=== PATIENT | male | born 1980 | race Caucasian/White ===

== ENCOUNTER 2024-03-28 20:31 | Inpatient (IN) | payer OTHER, SELFPAY ==
[2024-03-28 14:44] VITALS: BP 149/91
[2024-03-28 15:08] LABS: % Basophils 0.3 % (0-2); % Eosinophils 0.1 % (0-6); % Immature Granulocytes 0.5 % (0-0.5); % Lymphocytes 5.1 % (20.5-51.1); % Monocytes 5.7 % (1.7-9.3); % Neutrophils 88.3 % (42.2-75.2); Absolute Basophils 0.1 10^3/uL (0-0.2); Absolute Immature Granulocytes 0.1 10^3/uL (0-0.05); Absolute Monocytes 1.1 10^3/uL (0.1-0.6); Absolute Neutrophils 16.5 10^3/uL (1.4-6.5); Hematocrit 39.6 % (39.0-52.0); Mean Corp Hgb Conc. 35.4 g/dL (33.0-37.0); Mean Corpuscular Hgb 28.3 pg (27.0-31.0); Mean Corpuscular Volume 80.2 fL (80.0-94.0); Mean Platelet Volume 9.1 fL (7.4-10.4); Nucleated Red Blood Cells % 0 % (-); Platelet Count 166 10^3/uL (130-400); Red Blood Cell Count 4.94 10^6/uL (4.70-6.10); Red Cell Dist. Width 13.4 % (11.5-14.5); White Blood Cell Count 18.7 10^3/uL (4.8-10.8)
[2024-03-28 15:25] LABS: Lactic Acid 2.1 mmol/L (0.7-2.0)
[2024-03-28 15:27] LABS: ALT (SGPT) 52 U/L (0-50); AST (SGOT) 39 U/L (17-59); Albumin 4.3 g/dl (3.5-5.0); Alkaline Phosphatase 75 U/L (38-126); Blood Urea Nitrogen 29 mg/dl (9-20); Calcium 9.1 mg/dl (8.4-10.2); Carbon Dioxide 26 mmol/L (22-30); Chloride 97 mmol/L (98-107); Glucose 153 mg/dl (70-99); Potassium 3.9 mmol/L (3.5-5.1); Sodium 134 mmol/L (135-145); Total Bilirubin 1.1 mg/dl (0.2-1.3); Total Protein 7.3 g/dl (6.3-8.2); eGFR > 60.00
--- NOTE | 2024-03-28 15:46 | ED.GENMED ---
History of Present Illness
General
Chief Complaint: Skin Problem
Source: patient
Exam Limitations: none
Time Seen by Provider: 03/28/24 15:34
Travel History
Have you had any contact with someone who has COVID-19?: No
Do you have any symptoms of coronavirus? Fever > 100 degrees, chills, cough, shortness of breath, sore throat, loss of taste or smell, muscle aches, or headache?: No
History of Present Illness
History of Present Illness:
Patient started yesterday with redness to his right leg along with fever and chills. Has taken Motrin and Tylenol at 1 PM. Sent by his primary physician for cellulitis versus DVT. No chest pain or shortness of breath. No severe deep pain of the
calf.
Past History
Past History
ED Past Medical History: None
ED Past Surgical History: Appendectomy
Social History
Tobacco: Non-smoker
Alcohol: Occasional
Drug: None
Personal:
Living: with family
Employment: Employed
Review of Systems
Review of Systems
All Other Systems: Not applicable
Constitutional: Reports fever and chills
Respiratory: Reports no symptoms
Cardiac: Reports no symptoms
Phy Exam
Physical Exam
Physical Exam:
GENERAL: Alert and oriented in no apparent distress
EYE: Orbits normal.
CARDIAC: Regular rate and rhythm without any obvious murmurs.
LUNGS: Clear breath sounds,normal
ABDOMEN: Soft, without focal tenderness or distention
NEUROLOGICAL: Alert and oriented , grossly non-focal
SKIN: Warm and dry, small scab to the right mid calf. Erythema mild swelling warmth and mild tenderness diffusely from the proximal calf down towards the ankle. No abscess no drainage
MUSCULOSKELETAL: Mild swelling of the right lower extremity. Good distal pulses and color
PSYCH: Normal and appropriate interaction.
Course
Orders/Labs/Results
Orders:
Orders
03/28/24 14:56
CMP [Comprehensive Metabolic Panel] Urgent
Complete Blood Count/With Diff Urgent
03/28/24 14:57
Lactic Acid Q4H
Comment: ON ICE, CANCEL 2ND ORDER IF FIRST LACTIC ACID LEVEL <2
Blood Culture Q30M
MARIA ELENA Source: Blood/Venous
Specimen Description:
Comment: FROM 2 SEPARATE SITES
03/28/24 15:41
US Periph Venous LOWER Ext RT Urgent
Comment:
Reason For Exam: Swelling redness
03/28/24 15:42
IV Insert/Care/Rem.- Treatment PRN
0.9% Sodium Chloride 1000 ml [Nss] 1,000 ml IV BOLUS
03/28/24 15:56
Blood Culture Q30M
MARIA ELENA Source: Blood/Venous
Specimen Description:
Comment: FROM 2 SEPARATE SITES
03/28/24 16:00
Vancomycin [Vancocin] 2,000 mg 0.9% Sodium Chloride 500 ml [Nss] 500 ml IV NOW
03/28/24 16:22
CeFAZolin 2 GRAM [Ancef] 2 grams in 10 ml IV NOW
03/28/24 19:00
Lactic Acid Q4H
Comment: ON ICE, CANCEL 2ND ORDER IF FIRST LACTIC ACID LEVEL <2
Abnormal Lab Results
03/28/24 03/28/24
14:56 14:57
WBC 18.7 H 10^3/uL
(4.8-10.8)
Abs Immat Gran (auto) 0.1 H 10^3/uL
(0-0.05)
Absolute Neuts (auto) 16.5 H 10^3/uL
(1.4-6.5)
Absolute Lymphs (auto) 1.0 L 10^3/uL
(1.2-3.4)
Absolute Monos (auto) 1.1 H 10^3/uL
(0.1-0.6)
Neutrophils % 88.3 H %
(42.2-75.2)
Lymphocytes % 5.1 L %
(20.5-51.1)
Sodium 134 L mmol/L
(135-145)
Chloride 97 L mmol/L
(98-107)
BUN 29 H mg/dl
(9-20)
Glucose 153 H mg/dl
(70-99)
Lactic Acid 2.1 H mmol/L
(0.7-2.0)
ALT 52 H U/L
(0-50)
03/28/24 14:56
03/28/24 14:56
Vital Signs
Initial and Last Documented VS:
Initial Vital Signs
Temp Pulse Resp BP Pulse Ox
100.4 F H 100 18 149/91 97
03/28/24 14:44 03/28/24 14:44 03/28/24 14:44 03/28/24 14:44 03/28/24 14:44
Last Documented Vital Signs
Temp Pulse Resp BP Pulse Ox
99.5 F 98 16 134/74 99
03/28/24 18:57 03/28/24 19:15 03/28/24 19:00 03/28/24 19:00 03/28/24 19:15
MDM/Problems Addressed
Differential Diagnosis Includes:
Much more suspicious of cellulitis. Questionable mild penicillin allergy. Will cover with Vanco for MSSA/MRSA. Ultrasound pending. Explained to the patient that admission is warranted given the degree of cellulitis systemic symptoms leukocytosis.
*Radiology
Radiology exam reviewed: radiology read reviewed (Negative)
*Pulse Oximetry
Patient hypoxic: no
*Critical Care Note
Total Time (30-74mins, 75-104mins- exclusive of procedures): Not Applicable
Update Note
Update Note:
No discussed with ID. Feel cefazolin is appropriate. Patient does not have a true penicillin allergy. He is taken penicillins in the past.
ED Attending Note
-
Portions of this chart may have been created with voice recognition software.� Occasional wrong word or��sound alike� substitutions may have occurred due to the inherent limitations of voice recognition software.
Discharge Plan
Departure
Patient Disposition: Admit
Date of Disposition: 03/28/24
Time of Disposition: 19:09
Presentation/result/management discussed w/ accepting MD/DO: Hospitalist
Discharge Problem:
Right lower extremity cellulitis
Prescriptions:
No Action
ascorbic acid (vitamin C) [Vitamin C] 1,000 mg Tablet
1,000 mg PO DAILY
acetaminophen [Tylenol Extra Strength] 500 mg Tablet
1,000 mg PO DAILYPRN PRN (Reason: mild pain)
naproxen sodium [Aleve] 220 mg Tablet
440 mg PO DAILYPRN PRN (Reason: mild pain)
losartan 25 mg Tablet
25 mg PO DAILY
montelukast 10 mg Tablet
10 mg PO HS
fluticasone propionate [Flovent HFA] 110 mcg/actuation Hfa Aerosol Inhaler
1 puff INHALATION R BID
cholecalciferol (vitamin D3) 25 mcg (1,000 unit) Tablet
25 mcg PO DAILY
inulin-sorbitol 2 gram Tablet,Chewable
1 tab PO DAILY
Calcium + Magnesium
1 tab PO DAILY
Referrals:
Ariel Lechuga CRNP [Family Provider] -
Interventions
Interventions:
*Risk Screen - Suicide Last Done: 03/28/24 14:44
*General Assessment Last Done: 03/28/24 14:44
*Neglect/Abuse Screening Last Done: 03/28/24 14:44
ED- Fall Risk Assessment Last Done: 03/28/24 15:56
*ED COVID-19 Vaccine History Last Done: 03/28/24 14:44
ED-Skin Assessment Last Done: 03/28/24 15:56
Discharge Date and Time
Print Language: MALAY
[2024-03-28 15:56] VITALS: BMI 36.3
[2024-03-28] MEDS: NSS 1000 IV ×2 (15:59→21:24)
[2024-03-28] MEDS: ANCEF 10 IV (16:31)
[2024-03-28 19:00] VITALS: BP 134/74
--- NOTE | 2024-03-28 19:58 | HPS.HSE ---
Family Physician
-
Family Physician: PATRICIA Jones
Chief Complaint
-
Right Lower Ext Redness and Pain
History of Present Illness
This is a 44- year- old male with a past medical history of hypertension and asthma who presents to the ED for right calf pain and redness x 1 day. He states that he started with chills and diaphoresis first when he was in [place] recently but did
not have access to a thermometer. When he returned to [place] this morning he began to have worsening pain in his calf. He states there is pain to touch and initially when he gets up to walk. He took Tylenol and ibuprofen which did not relieve
his pain. He reports increasing redness of the right leg since yesterday. He states he had a wound on his right medial calf from a few weeks ago, but unsure how he got injured and thinks it occurred while he was gardening. He also has associated
nausea and decrease in appetite as a result. He denies shortness of breathe or pain in his left leg. He denies prior history of cellulitis.
Medical History
Past Medical History
Past Medical History: Reports Other
Additional Past Medical History:
Essential Hypertension
Asthma
Past Surgical History: Reports Other
Additional Past Surgical History:
Appendectomy
Social History
Tobacco: Non-smoker
Alcohol: Occasional
Personal:
Family History
Family History: Not pertinent
Allergies / Home Medications
Allergies reflects when Allergies were last updated in [employer].
Home Medications with original date entered in [employer]
Allergy/Medication List:
Allergies
Allergy/AdvReac Type Severity Reaction Status Date / Time
Penicillins Allergy Rash - Verified 03/28/24 16:02
tolerates
amoxicillin
Home Medications
Calcium + Magnesium 1 tab PO DAILY Supplement 03/28/24
acetaminophen 500 mg tablet (Tylenol Extra Strength) 1,000 mg PO DAILYPRN PRN mild pain 03/28/24
ascorbic acid (vitamin C) 1,000 mg tablet (Vitamin C) 1,000 mg PO DAILY Supplement 03/28/24
cholecalciferol (vitamin D3) 25 mcg (1,000 unit) tablet 25 mcg PO DAILY Supplement 03/28/24
fluticasone propionate 110 mcg/actuation HFA aerosol inhaler 1 puff inhalation R BID Lung/Breathing Issues 03/28/24
inulin-sorbitol 2 gram chewable tablet 1 tab PO DAILY Gastrointestinal Issue 03/28/24
losartan 25 mg tablet 25 mg PO DAILY Blood Pressure 03/28/24
montelukast 10 mg tablet 10 mg PO HS ASTHMA 03/28/24
naproxen sodium 220 mg tablet (Aleve) 440 mg PO DAILYPRN PRN mild pain 03/28/24
Review of Systems
-
A 12 point ROS was completed and negative except as noted: Yes
Respiratory: Denies Cough or Trouble Breathing
Cardiac: Denies Chest Pain or Palpitations
Musculoskeletal: Reports See HPI
Skin: Reports See HPI
Physical Exam
Vital Signs
Vital Signs
Temp Pulse Resp BP Pulse Ox
99.5 F 98 16 134/74 99
03/28/24 18:57 03/28/24 19:15 03/28/24 19:00 03/28/24 19:00 03/28/24 19:15
Physical Exam
General: Comfortable and Conversant
HEENT: Anicteric and Moist mucous membranes
Respiratory: Clear and Non Labored Respirations
Cardiac: S1/S2, Regular Rhythm and Tachycardia (Slightly)
GI: Soft and Non Tender
Musculoskeletal: No Clubbing, No Cyanosis and Edema, Right Lower Extremity
Skin: Other (Moderate erythema right lower ext with streaking up the posterior/medial thigh - Small scab noted right medial calf)
Laboratory Results
-
03/28/24 14:56
03/28/24 14:56
Laboratory Results
Lactic Acid 2.1 mmol/L (0.7-2.0) H 03/28/24 14:57
Total Bilirubin 1.1 mg/dl (0.2-1.3) 03/28/24 14:56
AST 39 U/L (17-59) 03/28/24 14:56
ALT 52 U/L (0-50) H 03/28/24 14:56
Alkaline Phosphatase 75 U/L (38-126) 03/28/24 14:56
Data Reviewed
-
Lab Data: Labs Reviewed by me
Impression/Plan
-
Sepsis secondary to Right Lower Ext Cellulitis
-Peripheral Vascular US negative for DVT
-Continue Ancef
-Await blood cultures
Essential Hypertension
-Continue losartan
Asthma, no acute exacerbation
-Continue montelukast and Flovent
Class II Obesity
DVT Proph: Lovenox
Code Status: Full Code
[2024-03-28 20:00] VITALS: BP 134/59
[2024-03-28 21:00] VITALS: BP 121/65
--- NOTE | 2024-03-28 21:17 | W.PN.UPDATE ---
Update Note
Progress Note Update
HPI: 44- year- old male with a past medical history of hypertension and asthma who presented to the ED for right calf pain and redness x 1 day. He states that he started with chills and diaphoresis first when he was in [place] recently but did not
have access to a thermometer. When he returned to [place] in the morning he began to have worsening pain in his calf. He took Tylenol and ibuprofen which did not relieve his pain. He reports increasing redness of the right leg since the day
prior. He states he had a wound on his right medial calf from a few weeks ago, but unsure how he got injured and thinks it occurred while he was gardening. He also has associated nausea and decrease in appetite as a result. He denies shortness of
breathe or pain in his left leg. He denies prior history of cellulitis.
A/P:
# Sepsis POA secondary to Right Lower Ext Cellulitis
Peripheral Vascular US negative for DVT
Continue Ancef
Await blood cultures
# Essential Hypertension
Continue losartan
# Asthma, no acute exacerbation
Continue montelukast and Flovent
# Class II Obesity
DVT Proph: Lovenox
Code Status: Full Code
[2024-03-28] MEDS: SINGULAIR 10 MG PO (22:07)
[2024-03-28 23:17] VITALS: BP 136/76
[2024-03-29] MEDS: ANCEF 10 IV ×4 (00:04→23:32)
[2024-03-29] MEDS: TYLENOL 650 MG PO (02:16)
[2024-03-29 03:00] VITALS: BP 132/72
[2024-03-29 06:00] VITALS: BP 137/79
[2024-03-29 06:47] LABS: Hematocrit 33.4 % (39.0-52.0); Hemoglobin 11.7 g/dL (13.0-18.0); Mean Corpuscular Hgb 28.5 pg (27.0-31.0); Mean Corpuscular Volume 81.5 fL (80.0-94.0); Mean Platelet Volume 9.9 fL (7.4-10.4); Platelet Count 148 10^3/uL (130-400); Red Cell Dist. Width 13.5 % (11.5-14.5); White Blood Cell Count 16.6 10^3/uL (4.8-10.8)
[2024-03-29 07:00] VITALS: BP 128/39
[2024-03-29 07:15] LABS: Blood Urea Nitrogen 20 mg/dl (9-20); Calcium 8.3 mg/dl (8.4-10.2); Carbon Dioxide 24 mmol/L (22-30); Chloride 102 mmol/L (98-107); Estimated Creatinine Clearance > 125 ml/min; Glucose 105 mg/dl (70-99); Sodium 135 mmol/L (135-145); eGFR > 60.00
[2024-03-29 08:07] VITALS: BP 131/78
[2024-03-29] MEDS: VITAMIN C 1000 MG PO (08:29)
[2024-03-29] MEDS: NSS 1000 IV ×2 (08:29→16:46)
[2024-03-29] MEDS: VITAMIN D3 (cholecalciferol) 25 MCG PO (08:30)
[2024-03-29] MEDS: COZAAR 25 MG PO (08:30)
--- NOTE | 2024-03-29 10:09 | PTCARENOTE ---
pt aaox3. states slight pain in right leg increases when walking. refused pain med at this time. right leg red warm tr edema in calf. + pulses. breath sounds clear.
--- NOTE | 2024-03-29 15:15 | W.PN.HOSP.TC ---
Today's Communication/Plan
-
Continue Ancef
Assessment / Plan
Assessment / Plan
# Sepsis POA secondary to Right Lower Ext Cellulitis
Peripheral Vascular US negative for DVT
Continue Ancef
Await blood cultures
# Essential Hypertension
Continue losartan
# Asthma, no acute exacerbation
Continue montelukast and Flovent
# Class II Obesity
CODE STATUS: Full code
DVT prophylaxis: Lovenox
Diet: Regular diet
Anticipated Discharge: Within 24 hours
Subjective/Interval History
-
Date of Service: March 29, 2024
Patient seen and examined at bedside, denies any chest pain or shortness of breath, no abdominal pain, no nausea, no vomiting, no diarrhea or constipation.
Right lower extremity redness and pain improved.
Objective Data
-
Labs:
Laboratory Results
03/29/24
05:55
WBC 16.6 H
Hgb 11.7 L
Hct 33.4 L
Plt Count 148
Sodium 135
Potassium 4.0
Chloride 102
Carbon Dioxide 24
BUN 20
Creatinine 0.9
Glucose 105 H
Calcium 8.3 L
Vital Signs:
Vital Signs
Temp Pulse Resp BP Pulse Ox
99.1 F 86 18 131/78 94
03/29/24 10:08 03/29/24 08:30 03/29/24 08:01 03/29/24 08:30 03/29/24 08:30
Physical Exam
-
General: Well Developed and No Apparent Distress
HEENT: Normocephalic, Atraumatic and Moist Mucous Membranes
Respiratory: Clear to Auscultation
Cardiac: Regular Rhythm and S1/S2; Negative Murmur, Rub or Gallop
GI: Soft, Nontender, Nondistended and Normal Bowel Sounds; Negative Organomegaly
Rectal: Deferred by Provider
Musculoskeletal: Edema, Right Lower Extrem
Skin: Warm and Other (Right lower extremity with redness)
Neuro: Nonfocal/Grossly Intact
[2024-03-29 16:27] VITALS: BP 156/89
--- NOTE | 2024-03-29 16:32 | PTCARENOTE ---
pt transferred to floor will all belongings. ivf running as ordered
--- NOTE | 2024-03-29 16:45 | PTCARENOTE ---
Received patient from ED. Patient here with RLE Cellulitis. Resumed NSS at 100 mL/hour.
AAOX4, pleasant and cooperative. Assessment completed and documented in shift assessment.
[2024-03-29] MEDS: TORADOL 30 MG IV (17:36)
[2024-03-29] MEDS: LOVENOX 40 MG SC (17:36)
[2024-03-29] MEDS: SINGULAIR 10 MG PO (21:04)
[2024-03-29 23:00] VITALS: BP 145/74
[2024-03-30] MEDS: NSS 1000 IV (02:26)
[2024-03-30 06:22] LABS: Hematocrit 33.4 % (39.0-52.0); Hemoglobin 11.5 g/dL (13.0-18.0); Mean Corp Hgb Conc. 34.4 g/dL (33.0-37.0); Mean Corpuscular Hgb 28.2 pg (27.0-31.0); Mean Corpuscular Volume 81.9 fL (80.0-94.0); Mean Platelet Volume 9.4 fL (7.4-10.4); Platelet Count 138 10^3/uL (130-400); Red Blood Cell Count 4.08 10^6/uL (4.70-6.10); Red Cell Dist. Width 13.4 % (11.5-14.5); White Blood Cell Count 10.5 10^3/uL (4.8-10.8)
[2024-03-30 07:04] LABS: Blood Urea Nitrogen 16 mg/dl (9-20); Calcium 8.3 mg/dl (8.4-10.2); Carbon Dioxide 23 mmol/L (22-30); Chloride 106 mmol/L (98-107); Estimated Creatinine Clearance > 125 ml/min; Glucose 97 mg/dl (70-99); Potassium 3.8 mmol/L (3.5-5.1); Sodium 138 mmol/L (135-145); eGFR > 60.00
[2024-03-30 07:52] VITALS: BP 138/69
[2024-03-30] MEDS: COZAAR 25 MG PO (08:34)
[2024-03-30] MEDS: TORADOL 30 MG IV (08:34)
[2024-03-30] MEDS: VITAMIN D3 (cholecalciferol) 25 MCG PO (08:35)
[2024-03-30] MEDS: VITAMIN C 1000 MG PO (08:35)
[2024-03-30] MEDS: ANCEF 10 IV ×2 (08:36→15:23)
--- NOTE | 2024-03-30 12:20 | W.PN.HOSP.TC ---
Today's Communication/Plan
-
Discharge today after 4:00 pm dose of Ativan
Assessment / Plan
Assessment / Plan
# Sepsis POA secondary to Right Lower Ext Cellulitis
Peripheral Vascular US negative for DVT
Continue Ancef
Await blood cultures
03/30
WBCs improved and fever improved will be discharged on oral antibiotic
# Essential Hypertension
Continue losartan
# Asthma, no acute exacerbation
Continue montelukast and Flovent
# Class II Obesity
CODE STATUS: Full code
DVT prophylaxis: Lovenox
Diet: Regular diet
Anticipated Discharge: Today
Subjective/Interval History
-
Date of Service: March 30, 2024
Patient seen and examined at bedside, denies any chest pain or shortness of breath, no abdominal pain, no nausea, no vomiting, no diarrhea or constipation.
Improved right lower extremity redness
Objective Data
-
Labs:
Laboratory Results
03/30/24
05:54
WBC 10.5
Hgb 11.5 L
Hct 33.4 L
Plt Count 138
Sodium 138
Potassium 3.8
Chloride 106
Carbon Dioxide 23
BUN 16
Creatinine 0.9
Glucose 97
Calcium 8.3 L
Vital Signs:
Vital Signs
Temp Pulse Resp BP Pulse Ox
100 F 84 16 138/69 98
03/30/24 07:52 03/30/24 08:54 03/30/24 08:54 03/30/24 07:52 03/30/24 08:54
I&O
03/29/24 03/30/24 03/31/24
06:59 06:59 06:59
Intake Total 1730 / 2210 480 / 480
Balance 1730 / 2210 480 / 480
Physical Exam
-
General: Well Developed and No Apparent Distress
HEENT: Normocephalic, Atraumatic and Moist Mucous Membranes
Respiratory: Clear to Auscultation
Cardiac: Regular Rhythm and S1/S2; Negative Murmur, Rub or Gallop
GI: Soft, Nontender, Nondistended and Normal Bowel Sounds; Negative Organomegaly
Rectal: Deferred by Provider
Musculoskeletal: Edema, Right Lower Extrem
Skin: Warm and Other (Right lower extremity with redness)
Neuro: Nonfocal/Grossly Intact
--- NOTE | 2024-03-30 12:29 | W.DCSUMMARY ---
Addendum entered and electronically signed by Thomas Chavez MD 03/30/24 15:54:
Sever sepsis secondary to right lower extremity cellulitis.
Lactic acid resulted at 2.1
Original Note:
Discharge Summary
Discharge Data
Date of Admission: 03/28/24
Date of Discharge: 03/30/24
-
Pending Results: No
Hospital Course
Patient admitted with sepsis POA secondary to Right Lower Ext Cellulitis
Peripheral Vascular US negative for DVT
Continue Ancef
Await blood cultures
03/30
WBCs improved and fever improved will be discharged on oral antibiotic
# Essential Hypertension
Continue losartan
# Asthma, no acute exacerbation
Continue montelukast and Flovent
# Class II Obesity
Discharge Plan
-
Patient Disposition: Home (Routine Discharge)
Discharge Diagnosis/Procedures: Sepsis secondary to cellulitis
Diet: 2 Gram Sodium
Activity: No restrictions
Driving Restrictions: As prior to admission
Referrals:
Ariel eLchuga CRNP [Family Provider] -
Prescriptions:
New
ketorolac 10 mg tablet
10 mg PO Q6H PRN (Reason: Pain) 5 Days Qty: 20 0RF
Rx Instructions:
maximum total duration of 5 days.
cefuroxime axetil 500 mg tablet
500 mg PO BID 5 Days Qty: 10 0RF
doxycycline hyclate 100 mg capsule
100 mg PO BID 5 Days Qty: 10 0RF
Continued
ascorbic acid (vitamin C) [Vitamin C] 1,000 mg Tablet
1,000 mg PO DAILY
acetaminophen [Tylenol Extra Strength] 500 mg Tablet
1,000 mg PO DAILYPRN PRN (Reason: mild pain)
losartan 25 mg Tablet
25 mg PO DAILY
montelukast 10 mg Tablet
10 mg PO HS
fluticasone propionate 110 mcg/actuation Hfa Aerosol Inhaler
1 puff INHALATION R BID
cholecalciferol (vitamin D3) 25 mcg (1,000 unit) Tablet
25 mcg PO DAILY
inulin-sorbitol 2 gram Tablet,Chewable
1 tab PO DAILY
Calcium + Magnesium
1 tab PO DAILY
Discontinued
naproxen sodium [Aleve] 220 mg Tablet
440 mg PO DAILYPRN PRN (Reason: mild pain)
Discharge Orders:
Discharge Patient (As Directed); Ordered 03/30/24
Ordered By: Thomas Chavez
Discharge Date and Time
Print Language: [place]
--- NOTE | 2024-03-30 15:25 | PN.CDI ---
CDI
- -
CDI:
Physician Documentation Request
Admit Date: 03/28/24 20:31
Dear Doctor Kathy,
Patient admitted for sepsis secondary to right lower extremity cellulitis.
Lactic acid resulted at 2.1
Please clarify which of the following most accurately describes the status of the patient's infection:
Sepsis only
Severe Sepsis
Other
Use of terms such as suspected, likely, concern for, or probable (associated with a specific diagnosis that is being evaluated, monitored, or treated as if it exists) are acceptable and can be coded in the inpatient setting, when documented at the
time of discharge.
Thank you,
Ana Gamez RN, BSN
CDI Specialist
tiger text
Please use your independent medical judgment in providing your response.
--- NOTE | 2024-03-30 16:00 | CM ---
Met patient as he was getting ready to leave . HE is being d.c with no needs. He lives with .
[2024-03-30 16:01] VITALS: BP 162/97
== END 2024-03-30 16:18 | disposition home or self-care (01) | DRG 872 ==
LOC: 3 WEST ACU 20:31
PROVIDERS: Emergency Medicine; Physician Assistant Medical; ADMITTING PHYSICIAN Internal Medicine; ATTENDING PHYSICIAN General Practice; EMERGENCY PHYSICIAN Emergency Medicine; FAMILY PHYSICIAN Registered Nurse
DX: A41.9 Sepsis, unspecified organism (principal); L03.115 Cellulitis of right lower limb; E87.20 Acidosis, unspecified; I10 Essential (primary) hypertension; J45.909 Unspecified asthma, uncomplicated; E66.9 Obesity, unspecified; R11.0 Nausea; R65.20 Severe sepsis without septic shock; Z68.36 Body mass index [BMI] 36.0-36.9, adult; Z79.51 Long term (current) use of inhaled steroids; Z79.4 Long term (current) use of insulin
CPT/HCPCS: 80048; 80053; 83605; 85025; 85027; 87040; 93971; 94640; 96361; 96374; 96375; 99284

== ENCOUNTER → 2024-05-18 09:37 | Outpatient (REF) | payer OTHER, SELFPAY | LOC: RAD 09:37 | PROVIDERS: ATTENDING PHYSICIAN Nurse Practitioner Adult Health; REFERRING PHYSICIAN Surgery Vascular Surgery | DX: L03.115 Cellulitis of right lower limb (principal); I10 Essential (primary) hypertension; R60.0 Localized edema | CPT/HCPCS: 93971 ==